=== PATIENT | male | born 1985 | race Caucasian/White ===

== ENCOUNTER 2018-12-16 22:31 | Emergency (ER) | payer BC ==
[~2018-12-16] VITALS: Ht 180.3 cm; Wt 77.1 kg
[2018-12-17] MEDS ORDERED: ZOFRAN4 MG PO (02:16)
[2018-12-17] MEDS ORDERED: CIPRO500 MG PO (02:16)
[2018-12-17] MEDS ORDERED: PEPCID40 MG PO (02:16)
== END 2018-12-17 02:33 | disposition home or self-care (01) ==
LOC: ER 22:31 → EDSEX 22:31 → ER 22:44
DX: K52.89 Other specified noninfective gastroenteritis and colitis (principal)